=== PATIENT | female | born 1995 | race Caucasian/White ===

== ENCOUNTER 2016-05-15 20:37 | Emergency (ER) | payer OTHER ==
[~2016-05-15] VITALS: Ht 157.5 cm; Wt 65.9 kg
[~2016-05-15 20:37] MED LIST: ADDERALL20 MG
[2016-05-15 20:41] VITALS: TEMP 99.2
[2016-05-15 22:13] VITALS: BP 136/82; PULSE 92
== END 2016-05-15 22:14 | disposition home or self-care (01) ==
LOC: COL.ER 20:37
DX: O99.89 Other specified diseases and conditions complicating pregnancy, childbirth and the puerperium (principal); R00.2 Palpitations; Z3A.25 25 weeks gestation of pregnancy

== ENCOUNTER 2016-08-14 17:21 | Outpatient (CLI) | payer OTHER ==
[~2016-08-14] VITALS: Ht 157.5 cm; Wt 71.4 kg
[2016-08-14 17:30] VITALS: BP 131/87; PULSE 146; TEMP 98.3
[2016-08-14 19:40] VITALS: BP 141/88; PULSE 136
[2016-08-14 21:30] VITALS: BP 137/81; PULSE 93; TEMP 98.5
[2016-08-14 21:55] VITALS: BP 122/78; PULSE 102
== END 2016-08-14 22:25 | disposition home or self-care (01) ==
LOC: LDRO 17:21
DX: O99.89 Other specified diseases and conditions complicating pregnancy, childbirth and the puerperium (principal); Z3A.37 37 weeks gestation of pregnancy
CPT/HCPCS: J2405; J7120

== ENCOUNTER 2016-08-15 02:46 | Inpatient (IN) | payer OTHER ==
[~2016-08-15] VITALS: Ht 157.5 cm; Wt 71.4 kg
[2016-08-15] VITALS (30 sets, daily range): BP systolic 114–162; BP diastolic 56–92; PULSE 78–130; TEMP 97.9–98.4
[2016-08-15 04:06] LABS: HEMATOCRIT 42.1 % (37.0-47.0); HEMOGLOBIN 14.2 g/dl (12.5-16.0); MEAN CELL VOLUME 83 fl (80.0-100.0); MEAN CORPUSCULAR HEMOGLOBIN 28 pg (27.0-31.0); MEAN CORPUSCULAR HGB CONC 34 g/dl (33.0-37.0); MEAN PLATELET VOLUME 9.8 fl (7.4-10.4); PLATELET COUNT 312 K/mm3 (130-400); RED BLOOD COUNT 5.06 M/mm3 (4.10-5.30); REDCELL DISTRIBUTION WIDTH-CV 14.9 % (11.5-14.5); WHITE BLOOD COUNT 17.3 K/mm3 (4.8-10.8)
[2016-08-15 04:09] LABS: ADD PATHOLOGY DIFF REVIEW NO
[2016-08-15 04:28] LABS: BAND 14 % (0-10); NEUTROPHILS 76 % (42.0-75.2); TOTAL CELLS COUNTED 100
[2016-08-16 09:30] VITALS: BP 121/72; PULSE 108; TEMP 98
[2016-08-16 15:15] VITALS: BP 127/86; PULSE 102; TEMP 97.9
[2016-08-16 19:45] VITALS: BP 123/73; PULSE 76; TEMP 98.2
[2016-08-16 20:00] VITALS: BP 120/77; PULSE 96; TEMP 98.1
[2016-08-17 10:40] VITALS: BP 129/87; PULSE 105; TEMP 97.9
[2016-08-17 16:00] VITALS: BP 119/74; PULSE 80; TEMP 98.7
== END 2016-08-17 18:10 | disposition home or self-care (01) | DRG 775 ==
LOC: LDRO 02:46 → LDR 03:10 → OB 11:15
PROVIDERS: Student in an Organized Health Care Education/Training Program
PROC: 10E0XZZ Delivery of Products of Conception, External Approach (ICD-10-PCS; principal; 2016-08-15)
PROC: 0HQ9XZZ Repair Perineum Skin, External Approach (ICD-10-PCS; 2016-08-15)
DX: O13.3 Gestational [pregnancy-induced] hypertension without significant proteinuria, third trimester (principal); O70.0 First degree perineal laceration during delivery; O69.81X0 Labor and delivery complicated by cord around neck, without compression, not applicable or unspecified; Z3A.38 38 weeks gestation of pregnancy; Z37.0 Single live birth
CPT/HCPCS: J2590; J7120